=== PATIENT | female | born 1945 | race Caucasian/White ===

== ENCOUNTER 2018-10-28 10:19 | Emergency (ER) | payer MEDICARE, OTHER, SELFPAY ==
[2018-10-28 10:32] VITALS: BP 144/88; PULSE 87; RESP 18; TEMP 36.9; O2SAT 99
--- NOTE | 2018-10-28 10:43 | DI.RAD.S_ITS ---
PROCEDURE: XR ANKLE RT MIN 3V INDICATIONS: tripped in the dark last night, now with right ankle pain TECHNIQUE: 3 views of the ankle were acquired. COMPARISON: None. FINDINGS: Bones: There is a moderately displaced fracture seen of the distal fibula, which is seen at and below the level of the syndesmosis. There is associated widening of the ankle mortise. There is an additional fracture seen distal to the medial malleolus, yet this fracture fragment demonstrates a rounded appearance. No posterior malleolar fracture can be seen. No suspicious lytic or blastic lesions are seen. Soft tissues: Soft tissue swelling is seen, primarily laterally. IMPRESSION: Distal fibular fracture, with associated widening of the ankle mortise. Remote appearing medial malleolar fracture. Dictated by: Home Whiting M.D. on 10/28/2018 at 10:14 Approved by: Home Whiting M.D. on 10/28/2018 at 10:15
--- NOTE | 2018-10-28 10:44 | PC.NURSE ---
pt reports, tripped and fell , in the dark room last night, now with right ankle swelling , pain, partial wt bearings, no trx order management specialist. denies loc, denies neck or back pain, or other injuries, takes asa 81mg daily. pt admits droveself in er today.
--- NOTE | 2018-10-28 10:50 | ED_ITS ---
HPI - Extremity Injury (Lower) General Chief Complaint: Extremity Injury, Lower Stated Complaint: thinks broke ankle Time Seen by Provider: 10/28/18 10:32 Source: patient Mode of arrival: ambulatory Limitations: no limitations History of Present Illness HPI Narrative: Patient is 73-year-old female who presents with right ankle pain. She says she tripped and fell last evening is no of the will be getting up to use the restroom. No other injury no head injury hip or knee injury. She notices quite a bit of swelling this morning and pain with ambulation. Came in for an x-ray. No numbness or tingling. Related Data Home Medications Medication Instructions Recorded Confirmed Linzess 290 mcg PO DAILY #0 10/07/16 10/28/18 alendronate 70 mg PO MO #0 10/07/16 10/28/18 atorvastatin [Lipitor] 20 mg PO DAILY #0 10/07/16 10/28/18 fluticasone 2 spray INTRANASAL QDAY PRN #0 10/07/16 10/28/18 amitriptyline 150 mg PO DAILY 10/28/18 10/28/18 citalopram 20 - 40 mg PO DAILY 10/28/18 10/28/18 epinephrine 0.3 mg SUBCUT PRN PRN 10/28/18 10/28/18 levothyroxine 88 mcg PO DAILY 10/28/18 10/28/18 liothyronine 5 mcg PO BID 10/28/18 10/28/18 metoprolol succinate 100 mg PO DAILY 10/28/18 10/28/18 sumatriptan succinate 1 dose SUBCUT PRN PRN 10/28/18 10/28/18 sumatriptan succinate 100 mg PO PRN PRN 10/28/18 10/28/18 triamterene-hydrochlorothiazid 1 tab PO DAILY 10/28/18 10/28/18 Previous Rx's Medication Instructions Recorded hydrocodone-acetaminophen [[place]] 1 tab PO Q6H PRN #10 tab 10/28/18 Allergies Allergy/AdvReac Type Severity Reaction Status Date / Time acetaminophen [From PERCOCET] Allergy Unknown Unverified 12/09/17 12:32 oxycodone [From PERCOCET] Allergy Unknown Unverified 12/09/17 12:32 Review of Systems Review of Systems GENERAL: Denies chills,fever HEENT: Denies throat pain RESPIRATORY: Denies dyspnea, cough, wheezing CARDIOVASCULAR: Denies chest pain, palpitations GASTROINTESTINAL: Denies nausea, vomiting MUSCULOSKELETAL: See HPI SKIN: No rash, no laceration, no pruritus NEUROLOGIC: Denies weakness, dizziness, headache, numbness 8 point review of systems is negative except for those stated above and HPI [facility] Medical History Hypertension (Acute) Hypothyroid (Acute) Social History alcohol intake: never substance use type: does not use Social History alcohol intake: never substance use type: does not use Exam Initial Vital Signs Initial Vital Signs: Vital Signs Temperature 98.4 F 10/28/18 10:32 Pulse Rate 87 10/28/18 10:32 Respiratory Rate 18 10/28/18 10:32 Blood Pressure 144/88 H 10/28/18 10:32 Pulse Oximetry 99 10/28/18 10:32 GENERAL: alert well-appearing pleasant elderly female CARDIOVASCULAR: peripheral pulses in tact, cap refill <2 sec RESPIRATORY: No respiratory distress, speaks in full sentences without difficulty EXTREMITIES: Normal range of motion, no clubbing or edema. Neurovascularly intact right ankle swollen tender medially. Distal pedal pulse intact Achilles intact. Negative knee and hip exam. NEUROLOGICAL: Cranial nerves II through XII grossly intact. Normal gait and speech. SKIN: Warm, dry, no petechiae, no rashes or lesions. Procedures Orthopedic Splinting/Casting Injury #1: Side: right Lower Extremity Injury Location: ankle Lower Extremity Immobilizer: posterior splint and stirrup splint Other Orthopedic Equipment: crutches Post splinting neuro exam: intact and no change Post splinting vascular exam: no change Placed by: Nursing Additional Comments: supervised by me Course Orders Ordered: ED Orders 10/28/18 10:43 XR ankle RT min 3V Stat Vital Signs - 8 hr 10/28/18 10:32 10/28/18 12:16 Temperature 98.4 F Pulse Rate 87 81 Respiratory Rate 18 16 Blood Pressure 144/88 H Blood Pressure [Left Arm] 133/77 Pulse Oximetry 99 96 MDM - Extremity Injury (Lower) Imaging Data right ankle: Radiologist's impression: PROCEDURE: XR ANKLE RT MIN 3V INDICATIONS: tripped in the dark last night, now with right ankle pain TECHNIQUE: 3 views of the ankle were acquired. COMPARISON: None. FINDINGS: Bones: There is a moderately displaced fracture seen of the distal fibula, which is seen at and below the level of the syndesmosis. There is associated widening of the ankle mortise. There is an additional fracture seen distal to the medial malleolus, yet this fracture fragment demonstrates a rounded appearance. No posterior malleolar fracture can be seen. No suspicious lytic or blastic lesions are seen. Soft tissues: Soft tissue swelling is seen, primarily laterally. IMPRESSION: Distal fibular fracture, with associated widening of the ankle mortise. Remote appearing medial malleolar fracture. Dictated by: Home Whiting M.D. on 10/28/2018 at 10:14 Discharge Plan Departure Patient Disposition: Home Clinical Impression: Ankle fracture, right Qualifiers: Encounter type: initial encounter Fracture type: closed Qualified Code(s): S82.891A - Other fracture of right lower leg, initial encounter for closed fracture Discharge Date/Time: 10/28/18 12:33 Interventions: ED Discharge Assessment Last Done: 10/28/18 12:30 Instructions: Ankle Fracture Activity Restrictions/Additional Instructions: *You have been diagnosed with right ankle fracture *What to do: keep splint on until evaluation by Orthopedic. do may or may not require surgery this is to be determined by the orthopedic doctor. use crutches elevate, *Continue to take medications as directed [place] 1 tablet every 6 hr if needed for severe *Follow up with your primary care provider in 2-3 days, call Orthopedics today to schedule follow-up appointment for next week *Return to ER if you should have numbness, tingling, worsening pain any new, worsening or concerning symptoms CONTROLLED SUBSTANCE DISCHARGE (Narcotoic/benzodiazepine/Flexeril/Phenergan) 1. You have been prescribed narcotic medications, it does have acetaminophen/Tylenol/paracetamol in it so do not take extra Tylenol or Tylenol containing products 2. Please understand that we cannot provide further refills of narcotics, benzodiazepines or controlled substances through the ED and her pain management will need to be through your provider. 3. While on these medications you cannot drive or operate heavy machinery. 4. You cannot sign legal documents or perform any duties such as this. 5. As long as you're taking opiate pain medications he should also be taking a stool softener such as Colace, Dulcolax, MiraLAX or prune juice, to help avoid constipation. Prescriptions: New hydrocodone-acetaminophen [[place]] 5-325 mg tablet 1 tab PO Q6H PRN (Reason: pain) Qty: 10 RF: 0 No Action fluticasone 16 GM spray,suspension 2 spray Intranasal QDAY PRN (Reason: Allergy Symptoms) Qty: 0 RF: 0 atorvastatin [Lipitor] 20 MG tablet 20 mg PO DAILY Qty: 0 RF: 0 alendronate 70 MG tablet 70 mg PO MO Qty: 0 RF: 0 Linzess 290 MCG capsule 290 mcg PO DAILY Qty: 0 RF: 0 amitriptyline 150 mg tablet 150 mg PO DAILY RF: 0 sumatriptan succinate 100 mg tablet 100 mg PO PRN PRN (Reason: Migraine Headache) RF: 0 metoprolol succinate 100 mg tablet extended release 24 hr 100 mg PO DAILY RF: 0 liothyronine 5 mcg tablet 5 mcg PO BID RF: 0 triamterene-hydrochlorothiazid 37.5-25 mg capsule 1 tab PO DAILY RF: 0 levothyroxine 88 mcg tablet 88 mcg PO DAILY RF: 0 citalopram 20 mg tablet 20 - 40 mg PO DAILY RF: 0 epinephrine 0.3 mg/0.3 mL auto-injector 0.3 mg subcut PRN PRN (Reason: Allergic Reaction) RF: 0 sumatriptan succinate 6 mg/0.5 mL pen injector 1 dose subcut PRN PRN (Reason: Migraine Headache) RF: 0 Referrals: [facility] [Provider Group]
[2018-10-28 12:16] VITALS: BP 133/77; PULSE 81; RESP 16; O2SAT 96
== END 2018-10-28 12:33 | disposition home or self-care (01) ==
PROVIDERS: Emergency Provider Emergency Medicine
DX: S82.891A Other fracture of right lower leg, initial encounter for closed fracture (principal); W01.0XXA Fall on same level from slipping, tripping and stumbling without subsequent striking against object, initial encounter
CPT/HCPCS: 29505; 29515; 73610; 99282; 99283

== ENCOUNTER 2023-08-12 08:29 | Emergency (ER) | payer MEDICARE, OTHER, SELFPAY ==
[2023-08-12] VITALS (65 sets, daily range): BP systolic 80–188; BP diastolic 50–122; PULSE 75–150; RESP 5–52; TEMP 36.9–37.1; O2SAT 88–99; BMI 20.5
--- NOTE | 2023-08-12 08:34 | ED_ITS ---
HPI - General Adult General Chief complaint: Chest Pain Stated complaint: chest pain/ has not had meds in 2 days Time Seen by Provider: 08/12/23 08:32 History of Present Illness HPI narrative: 78-year-old woman presents with chest pain and dyspnea, dizziness weakness and anxiety and getting worse as of today. She states that she lives in [place] but has been staying in [place] for ?meetings? for the last couple of days. She states that yesterday she went to [place] for a meeting however, she did not take any of her medications with her, did not feel it was important enough to swing by her house and pick them up yesterday and has not taken any of them for at least 48 hours. She notes that she is been increasingly anxious because [place] home [place] going [place] ?under [place] in the next couple of years?. Her reasons for not taking her medications, staying in [place] and overall events are not entirely coherent. She does not complain of nausea, vomiting, abdominal pain, diarrhea,, orthopnea, dyspnea, lower extremity edema Related Data Home Medications Medication Instructions Recorded Confirmed alendronate 70 mg tablet 70 mg PO MO ##0 10/07/16 10/28/18 atorvastatin 20 mg tablet (Lipitor) 20 mg PO DAILY ##0 10/07/16 10/28/18 fluticasone propionate 50 2 spray intranasal QDAY PRN 10/07/16 10/28/18 mcg/actuation nasal Allergy Symptoms ##0 spray,suspension linaclotide 290 mcg capsule 290 mcg PO DAILY ##0 10/07/16 10/28/18 (Linzess) amitriptyline 150 mg tablet 150 mg PO DAILY 10/28/18 10/28/18 citalopram 20 mg tablet 20 - 40 mg PO DAILY 10/28/18 10/28/18 epinephrine 0.3 mg/0.3 mL 0.3 mg SUBCUT PRN PRN Allergic 10/28/18 10/28/18 injection, auto-injector Reaction levothyroxine 88 mcg tablet 88 mcg PO DAILY 10/28/18 10/28/18 liothyronine 5 mcg tablet 5 mcg PO BID 10/28/18 10/28/18 metoprolol succinate 100 mg 100 mg PO DAILY 10/28/18 10/28/18 tablet,extended release 24 hr sumatriptan succinate 100 mg tablet 100 mg PO PRN PRN Migraine Headache 10/28/18 10/28/18 sumatriptan succinate 6 mg/0.5 mL 1 dose SUBCUT PRN PRN Migraine 10/28/18 10/28/18 subcutaneous pen injector Headache triamterene 37.5 1 tab PO DAILY 10/28/18 10/28/18 mg-hydrochlorothiazide 25 mg capsule Previous Rx's Medication Instructions Recorded hydrocodone 5 mg-acetaminophen 325 1 tab PO Q6H PRN pain #10 tabs 10/28/18 mg tablet ([place]) potassium chloride 8 mEq 8 meq PO DAILY #30 tabs 08/12/23 tablet,extended release Allergies Allergy/AdvReac Type Severity Reaction Status Date / Time acetaminophen [From PERCOCET] Allergy Unknown Unverified 12/09/17 12:32 oxycodone [From PERCOCET] Allergy Unknown Unverified 12/09/17 12:32 Review of Systems Review of Systems Narrative: Pertinent positive and negative findings as per HPI Patient History Medical History (Updated 08/12/23 @ 13:18 by Cassie Madden MD) Hypertension Hypothyroid Social History alcohol intake: never substance use type: does not use alcohol intake frequency: 0-2 drinks per day Substance Use Type: does not use Exam Initial Vital Signs Initial Vital Signs: General: Healthy appearing, full makeup on, anxious, somewhat tearful. Able to speak in full sentences but somewhat reluctant to completely answer questions. Well-nourished well-developed HEENT: Moist mucous membranes, normal sclera with reactive pupils, Neck: No JVD, supple Respiratory: Lungs are clear to auscultation, no wheezing no rales no rhonchi. Full and symmetrical air movement Cardiac: Rapid but regular, no murmurs no bruits Abdomen: Soft, nontender, good bowel tones, no flank pain Skin: Warm and dry, no rashes Neurologic: Grossly neurologically intact with no obvious asymmetries or abnormalities Extremities: No trauma, well perfused, no lower extremity edema Psych: Anxious, tearful, fluent speech pattern Medical Decision Making MDM Narrative Medical decision making narrative: CC: Chest pain and anxiety starting this morning. Complicating co-morbidities: No medications for the last at least 48 hours. Data collected from: patient, medics Social determinants of health that may influence the patients condition: Significantly anxious and explanation for not having her medications are either not offered or not entirely making sense. May benefit from social work consult while were continuing to figure out the medical issues. Her primary care provider is in [place] Medical records reviewed: No significant records available for review Differential considered: Acute coronary syndrome, AFib, congestive heart failure, anxiety, pulmonary embolism, medication withdrawal Exam documented above, pertinent findings include: Well coifed and appropriate make up applied, tearful, anxious, rapid heart rate no reproducible chest pain no abdominal pain no obvious JVD/crackles/lower extremity edema to suggest congestive heart failure Lab Test results independently reviewed as above. Pertinent findings: CBC is unremarkable Chemistries are notable for hypokalemia at 2.9 Troponin is undetectable Repeat troponin is undetectable D-dimer is appropriate for age correction Independently reviewed EKG: Sinus tachycardia at 1:[address] depression, ST-elevation in AVR, concern for ischemic injury but not meeting acute STEMI criteria Imaging studies independently reviewed: Chest x-ray shows no acute issues Treatments: Patient is given a single sublingual nitro and 5 mg of IV metoprolol with resolution of her chest pain, heart rate has come down from the 150 range to the 120 range and she is far less anxious. She did have a transient significant hypotensive response. She will be given oral potassium, suspect the low potassium is secondary to her daily triamterene (despite the fact that she has not been taking her medications) Tachycardia could be related to beta kaden withdrawal, we will give her her 100 mg of metoprolol succinate orally Dizziness could be related to missing her citalopram dose, we will give her her usual 40 mg Re-evaluations: After IV metoprolol, oral metoprolol, oral citalopram and a L of fluid heart rate is down to 84. Discussion:Patient is re-evaluated and is feeling significantly better, the emotional distress has resolved. Her heart rate is down comfortably, blood pressure is appropriate she is not requiring any oxygen. Lab work has been entirely benign with the exception of the hypokalemia at 2.9. We did try to give some IV potassium but it was burning too much and patient declined. Patient asks if we have suggestions for primary care doctor locally is recurrent doctor is in [place]. We will have our social work administrator get her phone numbers for providers in the would [facility]. At this point I believe most of her symptoms are simply due to missed medications rather than more significant pathology that would require hospitalization at this time. Patient will be discharged home after she has had a chance to talk with our social work administrator. 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 Dizziness after missing citalopram is common. You are given a dose of citalopram in the ER Rebound tachycardia(heart rate going too fast) is common when skipping metoprolol. Your heart rate came down nicely with the addition of metoprolol and a small amount of IV fluids We did find that your potassium level was slightly low. Sometimes with the triamterene hydrochlorothiazide that you take for your blood pressure additional potassium supplementation is required. I have given you a prescription for potassium to take daily. 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 There was no evidence of acute issue today that would require hospitalization or further workup Use spoken with our social work administrator and she is given you some contact numbers to begin calling to see if you can establish a primary care physician more locally than [place]. If you find that you are getting worse or develop any new symptoms, please feel free to return to the emergency department for further evaluation. Prescriptions: New potassium chloride 8 mEq tablet extended release 8 meq PO DAILY Qty: 30 1RF No Action fluticasone propionate 16 GM spray,suspension 2 spray Intranasal QDAY PRN (Reason: Allergy Symptoms) Qty: 0 Patient Comments: patient states seasonal atorvastatin [Lipitor] 20 MG tablet 20 mg PO DAILY Qty: 0 alendronate 70 MG tablet 70 mg PO MO Qty: 0 Linzess 290 MCG capsule 290 mcg PO DAILY Qty: 0 hydrocodone-acetaminophen [[place]] 5-325 mg tablet 1 tab PO Q6H PRN (Reason: pain) Qty: 10 0RF amitriptyline 150 mg tablet 150 mg PO DAILY sumatriptan succinate 100 mg tablet 100 mg PO PRN PRN (Reason: Migraine Headache) metoprolol succinate 100 mg tablet extended release 24 hr 100 mg PO DAILY liothyronine 5 mcg tablet 5 mcg PO BID triamterene-hydrochlorothiazid 37.5-25 mg capsule 1 tab PO DAILY levothyroxine 88 mcg tablet 88 mcg PO DAILY citalopram 20 mg tablet 20 - 40 mg PO DAILY Patient Comments: take 1 to 2 tablets by mouth once daily epinephrine 0.3 mg/0.3 mL auto-injector 0.3 mg subcut PRN PRN (Reason: Allergic Reaction) sumatriptan succinate 6 mg/0.5 mL pen injector 1 dose subcut PRN PRN (Reason: Migraine Headache) Referrals: Laura Quinones MD [Primary Care Provider] - Stand Alone Forms: Patient Portal/API
--- NOTE | 2023-08-12 08:45 | DI.RAD.S_ITS ---
PROCEDURE: XR CHEST 1V INDICATIONS: chest pain TECHNIQUE: One view of the chest was acquired. COMPARISON: [facility], , CHEST 1 VIEW, 10/07/2016, 20:47. FINDINGS: Surgical changes and devices: None. Lungs and pleura: Lungs are clear. No pleural effusions or pneumothorax. Mediastinum: Mediastinal contours appear normal. Heart size is normal. Bones and chest wall: No suspicious bony lesions. Overlying soft tissues appear unremarkable. IMPRESSION: No acute process. Dictated by: Ivan Benedict M.D. on 08/12/2023 at 9:27 Approved by: Ivan Benedict M.D. on 08/12/2023 at 9:27
[2023-08-12] MEDS: NITROGLYCERIN 0.4 MG SL TAB SL (08:52)
[2023-08-12] MEDS: METOPROLOL TARTRATE 5 MG/5 ML INJ IV (08:53)
[2023-08-12 09:07] LABS: Add Manual Diff / Slide Review NO; Basophils Absolute Auto 0 /uL (0-100); Basophils Percent Auto 0.5 % (0-2); Eosinophils Absolute Auto 500 /uL (0-450); Eosinophils Percent Auto 5.1 % (2-4); Hematocrit 41.9 % (36-46); Hemoglobin 14.4 g/dL (12.0-16.0); Lymphocytes Absolute Auto 3400 /uL (1100-4500); Lymphocytes Percent Auto 35.5 % (25-40); Mean Corpuscular HGB Conc 34.5 % (30-36); Mean Corpuscular Hemoglobin 32.4 PG (26-34); Mean Corpuscular Volume 94.1 fL (80-100); Monocytes Absolute Auto 800 /uL (0-900); Monocytes Percent Auto 8.4 % (3-14); Neutrophils Absolute Auto 4800 /uL (1500-7000); Neutrophils Percent Auto 50.5 % (50-75); Platelet Count 294 X10^3/uL (150-400); Red Blood Cell Count 4.46 X10^6/uL (4.0-5.2); White Blood Cell Count 9.5 X10^3/uL (4.5-11.0)
[2023-08-12 09:19] LABS: D Dimer 522 ng/ml (<500)
[2023-08-12 09:24] LABS: Alanine Aminotransferase 30 IU/L (<35); Albumin 4.6 g/dL (3.5-5.0); Albumin Globulin Ratio 1.2 (1.0-2.8); Alkaline Phosphatase 89 U/L (38-126); Aspartate Aminotransferase 31 IU/L (14-36); BUN Creatinine Ratio 27.2 (6-22); Bilirubin Total 0.9 mg/dL (0.2-1.3); Blood Urea Nitrogen 22 mg/dL (7-17); Calcium 9.8 mg/dL (8.4-10.2); Carbon Dioxide 30 mmol/L (22-32); Chloride 95 mmol/L (98-107); Estimated Glomerular Filt Rate > 60 mL/min (>60); Globulin 3.9 g/dL (1.7-4.1); Glucose 126 mg/dL (80-110); HEMOLYSIS < 15 (0-50); Lipase 212 U/L (23-300); Magnesium 1.6 mg/dL (1.6-2.3); Potassium 2.9 mmol/L (3.4-5.1); Sodium 136 mmol/L (137-145); Total Protein 8.5 g/dL (6.3-8.2)
--- NOTE | 2023-08-12 09:29 | PC.NURSE ---
Pt's pressure dropped to 88/52, 88/54, 80/50 after 1 dose metoprolol and 1 dose nitro. Physician aware. Pt is reverse trendelenberg (head low/feet high). Pt AOx4, states feeling better no more shaking.
[2023-08-12 09:34] LABS: NT-proBNP (BNP-Adult 18+) 136 pg/mL (<450); Troponin I < 0.012 ng/mL (0.01-0.034)
[2023-08-12] MEDS: METOPROLOL ER 50 MG TABLET 100 MG PO (10:08)
[2023-08-12] MEDS: CITALOPRAM 10 MG TABLET 40 MG PO (10:08)
[2023-08-12] MEDS: SODIUM CHLORIDE 0.9% 1,000 ML 1000 ML IV (10:09)
[2023-08-12 10:11] LABS: Ethanol (ETOH) < 10 mg/dL
[2023-08-12 11:24] LABS: Troponin I < 0.012 ng/mL (0.01-0.034)
[2023-08-12] MEDS: POTASSIUM CHLORIDE 20 MEQ TAB 40 MEQ PO (11:28)
[2023-08-12] MEDS: POTASSIUM CHLORIDE IN WATER 10 MEQ/100 ML PIGGYBACK 100 MEQ IV (11:28)
[2023-08-12 11:42] LABS: Appearance Urine UA CLEAR; Bilirubin Urine UA NEGATIVE (NEGATIVE); Color Urine UA YELLOW; Glucose Urine UA NEGATIVE (Negative); Ketones Urine UA NEGATIVE (NEGATIVE); Leukocyte Esterase Urine UA NEGATIVE (NEGATIVE); Nitrite Urine UA NEGATIVE (Negative); Occult Blood Urine UA NEGATIVE (Negative); Protein Urine UA NEGATIVE (Negative); Specific Gravity Urine UA <=1.005 (1.000-1.035); Urobilinogen Urine UA 0.2 E.U./dL (0.2)
--- NOTE | 2023-08-12 11:46 | PC.NURSE ---
Pts IV site was burning after start of potassium. Pt refused to allow me to slow the rate down. Pt states I would rather not have it at all. Dr Madden aware of pts refusal at this time.
[2023-08-12 11:49] LABS: Bacteria Urine None Seen; Culture Indicated Urine Cult Not Indicated; RBC Urine None Seen (0-5/HPF); Squamous Epithelial Cell Urine None Seen (0-5/HPF); WBC Urine None Seen (0-5/HPF)
--- NOTE | 2023-08-12 13:32 | CM.SWNOTE ---
SOCIAL WORK NOTE 13:15 SW was asked to meet with patient to discuss local PCP resources available local to [place] as she has historically seen providers in [place]. SW met with pt at bedside. Pt confirmed her name and date of . Pt details she was in [place] at [facility] as she volunteers with [employer] and she forgot her medications. She reports she has lived in [place] for ten years and while she has maintained relationships with providers in [place] she is now finding this more difficult due to the distance. she thanks TAYLOR for information on PCP's in [place]. She denies any other needs. Pt reports she has good social supports in [place] and daughter and Son-In-Law are in [place] and help with upkeep of her property. She does share that she is planning to sell her home due to beach erosion but has yet to decide where she will move. Plan: Above provided to MD. Anticipate MD will discharge pt home to self. Perla Palencia, PASTE WORKER, POLE TESTER
== END 2023-08-12 13:50 | disposition home or self-care (01) ==
PROVIDERS: Emergency Provider Emergency Medicine; PCP Family Medicine
DX: R00.0 Tachycardia, unspecified (principal); F41.9 Anxiety disorder, unspecified; Z91.148 Patient's other noncompliance with medication regimen for other reason; T44.7X6A Underdosing of beta-adrenoreceptor antagonists, initial encounter; I10 Essential (primary) hypertension; E03.9 Hypothyroidism, unspecified
CPT/HCPCS: 36415; 71045; 80053; 80320; 81001; 83690; 83735; 83880; 84484; 85025; 85379; 93005; 93010; 96361; 96365; 96375; 99284